=== PATIENT | male | born 1975 | race Caucasian/White ===

== ENCOUNTER 2018-10-13 13:31 | Emergency (ER) | payer SELFPAY ==
[2018-10-13 13:44] VITALS: BP 145/86
[2018-10-13] MEDS ORDERED: CEPH-264 PO (14:14)
[2018-10-13] MEDS ORDERED: SULF1TAB24 PO (14:14)
--- NOTE | 2018-10-13 14:14 | PHYS DOC ---
Past History Past Medical History: No Pertinent History Past Surgical History: No Surgical History Alcohol Use: None Drug Use: None Adult General Chief Complaint Chief Complaint: FACE PROBLEM HPI HPI Patient is a 43 year old male who presents with complaint of right-sided facial swelling. Patient states that his symptoms started yesterday. States that they have significantly worsened today. Notes tenderness along the right cheek and states that the cheek feels very hard. His not sure if something may have bit him. States he has a possible bite next to the right side of his upper lip. Has not had any drainage. Denies any fever. States that the cheek is become more swollen and painful over the past several hours. States he took Tylenol this morning with no relief in symptoms. Denies any other symptoms. Review of Systems Review of Systems Constitutional: Denies fever or chills [] Eyes: Denies change in visual acuity, redness, or eye pain [] HENT: Right-sided facial swelling[] Respiratory: Denies cough or shortness of breath [] Cardiovascular: Denies chest pain or edema[] GI: Denies abdominal pain, nausea, vomiting, bloody stools or diarrhea [] : Denies dysuria or hematuria [] Musculoskeletal: Denies back pain or joint pain [] Integument: Denies rash or skin lesions [] Neurologic: Denies headache, focal weakness or sensory changes [] All other systems were reviewed and found to be within normal limits, except as documented in this note. Allergies Allergies No known drug allergies Physical Exam Physical Exam Constitutional: Alert, afebrile, appears in mild discomfort. [] HENT: Normocephalic, atraumatic, erythema, soft tissue swelling, induration, and tenderness along the right cheek just below the right zygoma, no fluctuance, bi lateral external ears normal, oropharynx moist, no oral exudates, nose normal. [] Eyes: PERRLA, EOMI, conjunctiva normal, no discharge. [] Neck: Normal range of motion, no tenderness, supple, no stridor. [] Cardiovascular:Heart rate regular rhythm, no murmur [] Lungs & Thorax: Bilateral breath sounds clear to auscultation [] Abdomen: Bowel sounds normal, soft, no tenderness, no masses, no pulsatile ma sses. [] Skin: Warm, dry, no erythema, no rash. [] Back: No tenderness, no CVA tenderness. [] Extremities: No tenderness, no cyanosis, no clubbing, ROM intact, no edema. [] Neurologic: Alert and oriented X 3, normal motor function, normal sensory function, no focal deficits noted. [] Current Patient Data Vital Signs Vital Signs Date Time Temp Pulse Resp B/P (MAP) Pulse Ox O2 Delivery O2 Flow Rate FiO2 10/13/18 13:44 99.0 91 18 96 Room Air Lab Results Not performed EKG EKG Not performed[] Radiology/Procedures Radiology/Procedures Not performed[] Course & Med Decision Making Course & Med Decision Making Pertinent Labs and Imaging studies reviewed. (See chart for details) Patient appears to have a localized facial cellulitis along the right cheek. Started on Bactrim and Keflex for treatment. Will continue on 10 day course for therapy. Advised follow-up with primary doctor in the next 4-5 days if symptoms are not improving and return to emergency department for any worsening symptoms. Patient was understanding and in agreement with treatment plan.[] Dragon Disclaimer Dragon Disclaimer This electronic medical record was generated, in whole or in part, using a voice recognition dictation system. Departure Departure: Impression: Primary Impression: Facial cellulitis Disposition: HOME, SELF-CARE Condition: STABLE Referrals: PCP,SHAKIR (PCP) Patient Instructions: Cellulitis Additional Instructions: Follow-up with your primary doctor in 4-5 days for reevaluation. Return to emergency department for any worsening symptoms. Scripts Cephalexin (KEFLEX) 500 Mg Capsule 1 CAP PO QID, #40 CAP Prov: TOSIN CARIAS MD 10/13/18 Sulfamethoxazole/Trimethoprim (BACTRIM DS TABLET) 1 Each Tablet 1 TAB PO BID, #20 TAB Prov: TOSIN CARIAS MD 10/13/18 TOSIN CARIAS MD Oct 13, 2018 14:14
[2018-10-13] MEDS ORDERED: SMZ/TMP 800/160MG TABLET. PO ONE (14:15)
[2018-10-13] MEDS ORDERED: CEPHALEXIN 250 MG CAPSULE PO ONE (14:15)
== END 2018-10-13 14:25 | disposition home or self-care (01) ==
LOC: ER 13:31
DX: L03.211 Cellulitis of face (principal)
CPT/HCPCS: 99283